=== PATIENT | female | born 1955 | race Caucasian/White ===

== ENCOUNTER 2022-03-16 17:11 | Emergency (ER) | payer MEDICARE, BC ==
[2022-03-16] MEDS ORDERED: Acetaminophen 325 MG Tab PO ONE (19:02)
[2022-03-16] MEDS ORDERED: Acetaminophen/Codeine 300-30 MG Tab PO ONE (20:41)
== END 2022-03-16 22:20 | disposition home or self-care (01) ==
LOC: JP.ED 17:11
DX: T84.022A Instability of internal right knee prosthesis, initial encounter (principal); Z79.82 Long term (current) use of aspirin; Z79.899 Other long term (current) drug therapy; Z96.651 Presence of right artificial knee joint
CPT/HCPCS: 73562; 99283; A9270

== ENCOUNTER 2025-06-27 06:17 | Day surgery (SDC) | payer MEDICARE, BC ==
[2025-06-27] MEDS ORDERED: Propofol 200 MG/20 ML SDV ONE (07:11)
[2025-06-27] MEDS ORDERED: fentaNYL 100 MCG/2 ML SDV ONE (07:11)
[2025-06-27] MEDS: Lactated Ringers 1,000 ML IV SCH (07:16)
== END 2025-06-27 09:25 | disposition home or self-care (01) ==
LOC: JP.SDS 06:17
PROVIDERS: ATTEND Surgery
DX: Z12.11 Encounter for screening for malignant neoplasm of colon (principal); Z86.0101 Personal history of adenomatous and serrated colon polyps
CPT/HCPCS: J2704; J3010; J7120